=== PATIENT | female | born 1995 | race Caucasian/White ===

== ENCOUNTER 2018-09-02 21:22 | Inpatient (IN) | payer OTHER ==
[2018-09-03] MEDS ORDERED: Lidocaine 1% 50 ML MDV INJECT PRN (00:13)
[2018-09-03] MEDS ORDERED: Tranexamic Acid 1,000 MG in Sodium Chloride 0.9% 100 ML IV PRN (00:13)
[2018-09-03] MEDS ORDERED: Sodium Chloride 0.9% 10 ML Syringe FLUSH PRN (00:13)
[2018-09-03] MEDS ORDERED: Water For Irrigation,Sterile 1,000 ML Container IRR PRN (00:13)
[2018-09-03] MEDS ORDERED: Nalbuphine 10 MG/1 ML Vial IVPUSH PRN (00:13)
[2018-09-03] MEDS ORDERED: Methylergonovine 0.2 MG/1 ML Amp IM PRN (00:13)
[2018-09-03] MEDS ORDERED: Butorphanol 1 MG/ML SDV IVPUSH PRN (00:13)
[2018-09-03] MEDS ORDERED: Carboprost Tromethamine 250 MCG/1 ML Amp IM PRN (00:13)
[2018-09-03] MEDS ORDERED: Misoprostol 200 MCG Tab PO PRN (00:13)
[2018-09-03] MEDS ORDERED: Sodium Chloride 0.9% 2.5 ML Syringe FLUSH PRN (00:13)
[2018-09-03] MEDS ORDERED: Ondansetron 4 MG/2 ML SDV IV PRN (00:13)
[2018-09-03] MEDS ORDERED: Oxytocin/0.9 % Sodium Chloride 30 UNIT/500 ML BAG IV SCH ×2 (00:15→02:45)
[2018-09-03] MEDS ORDERED: fentaNYL 100 MCG/2 ML SDV ONE (01:11)
[2018-09-03] MEDS ORDERED: Lidocaine HCl/EPINEPHrine 5 ML IJ ONE (01:12)
[2018-09-03] MEDS ORDERED: Bupivacaine 0.25% 10 ML SDV ONE (01:12)
[2018-09-03] MEDS: Lactated Ringers 1,000 ML IV SCH ×4 (01:15→09:22)
[2018-09-03] MEDS ORDERED: Terbutaline 1 MG/ML SDV SUBCUT PRN (02:42)
--- NOTE | 2018-09-03 02:46 | PCM.PREANE ---
Preanesthetic Assessment - Procedure Proposed Procedure: tiffanie - Anesthesia/Transfusion/Family Hx Anesthesia History: No Prior Anesthesia Transfusion History: No Prior Transfusion(s) Type of Transfusion Reactions: Reports: Unknown - Review of Systems General: No Symptoms Pulmonary: No Symptoms Cardiovascular: No Symptoms Gastrointestinal: No Symptoms Neurological: No Symptoms Other: Reports: None - Physical Assessment NPO Status Date: 09/03/18 NPO Status Time: 01:00 Pulse: 88 O2 Sat by Pulse Oximetry: 98 Respiratory Rate: 18 Blood Pressure: 128/78 Height: 1.57 m Weight: 92.079 kg ASA Class: 2E Mental Status: Alert & Oriented x3 Dentition: Reports: Normal Dentition ROM/Head Extension: Full Lungs: Clear to Auscultation Cardiovascular: Regular Rate - Lab Values: Laboratory Last Values WBC 14.38 K/uL (4.0-11.0) H 09/02/18 23:01 RBC 4.22 M/uL (4.30-5.90) L 09/02/18 23:01 Hgb 10.3 g/dL (12.0-16.0) L 09/02/18 23:01 Hct 32.1 % (36.0-46.0) L 09/02/18 23:01 MCV 76.1 fL (80.0-98.0) L 09/02/18 23:01 MCH 24.4 pg (27.0-32.0) L 09/02/18 23:01 MCHC 32.1 g/dL (31.0-37.0) 09/02/18 23:01 RDW Std Deviation 38.6 fl (28.0-62.0) 09/02/18 23:01 RDW Coeff of Janell 14 % (11.0-15.0) 09/02/18 23:01 Plt Count 202 K/uL (150-400) 09/02/18 23:01 MPV 12.90 fL (7.40-12.00) H 09/02/18 23:01 Nucleated RBC % 0.2 /100WBC 09/02/18 23:01 Nucleated RBCs # 0 K/uL 09/02/18 23:01 Urine Color YELLOW 09/02/18 21:42 Urine Appearance CLOUDY 09/02/18 21:42 Urine pH 6.0 (5.0-8.0) 09/02/18 21:42 Ur Specific [place] 1.010 (1.001-1.035) 09/02/18 21:42 Urine Protein NEGATIVE mg/dL (NEGATIVE) 09/02/18 21:42 Urine Glucose (UA) NEGATIVE mg/dL (NEGATIVE) 09/02/18 21:42 Urine Ketones NEGATIVE mg/dL (NEGATIVE) 09/02/18 21:42 Urine Occult Blood MODERATE (NEGATIVE) H 09/02/18 21:42 Urine Nitrite NEGATIVE (NEGATIVE) 09/02/18 21:42 Urine Bilirubin NEGATIVE (NEGATIVE) 09/02/18 21:42 Urine Urobilinogen 0.2 EU/dL (<2.0) 09/02/18 21:42 Ur Leukocyte Esterase MODERATE (NEGATIVE) H 09/02/18 21:42 Blood Type O POSITIVE 09/02/18 23:01 Antibody Screen NEGATIVE 09/02/18 23:01 - Allergies Allergies/Adverse Reactions: Allergies Allergy/AdvReac Type Severity Reaction Status Date / Time cinnamon Allergy Hives Verified 09/02/18 22:11 - Acknowledgements Anesthesia Type Planned: Epidural Pt an Appropriate Candidate for the Planned Anesthesia: Yes Alternatives and Risks of Anesthesia Discussed w Pt/Guardian: Yes Pt/Guardian Understands and Agrees with Anesthesia Plan: Yes PreAnesthesia Questionnaire HEENT History: Reports: None Cardiovascular History: Reports: None Respiratory History: Reports: None Gastrointestinal History: Reports: None Genitourinary History: Reports: None 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 Musculoskeletal History: Reports: None Neurological History: Reports: None Psychiatric History: Reports: None Endocrine/Metabolic History: Reports: None Hematologic History: Reports: None Immunologic History: Reports: None Oncologic (Cancer) History: Reports: None Dermatologic History: Reports: None - Infectious Disease History Infectious Disease History: Reports: Chicken Pox - Past Surgical History Head Surgeries/Procedures: Reports: None HEENT Surgical History: Reports: Other (See Below) Other HEENT Surgeries/Procedures: [place] tooth extraction Cardiovascular Surgical History: Reports: None Respiratory Surgical History: Reports: None GI Surgical History: Reports: Bariatric Procedure Female Surgical History: Reports: None Endocrine Surgical History: Reports: None Neurological Surgical History: Reports: None Musculoskeletal Surgical History: Reports: None Oncologic Surgical History: Reports: None Dermatological Surgical History: Reports: None - SUBSTANCE USE Smoking Status *Q: Never Smoker Second Hand Smoke Exposure: No Recreational Drug Use History: No - HOME MEDS Home Medications: Home Meds PNV #116/Iron Fumarate/FA/DHA [Expecta Combo Pack] 09/02/18 [History] - CURRENT (IN HOUSE) MEDS Current Meds: Current Medications Butorphanol Tartrate (Stadol) 1 mg IVPUSH Q1H PRN PRN Reason: Pain Last Admin: 09/03/18 00:40 Dose: 1 mg Carboprost Tromethamine (Hemabate Ds) 250 mcg IM ASDIRECTED PRN PRN Reason: Post Hemorrhage Tranexamic Acid 1,000 mg/ (Sodium Chloride) 110 mls @ 660 mls/hr IV ONETIME PRN PRN Reason: Bleeding Lactated Ringer's (Ringers, Lactated) 1,000 mls @ 150 mls/hr IV ASDIRECTED JUAN Last Admin: 09/03/18 02:41 Dose: 150 mls/hr Oxytocin/Sodium Chloride (Oxytocin 30 Unit/500 Ml-Ns) 30 unit in 500 mls @ 999 mls/hr IV TITRATE [facility] Lidocaine HCl (Xylocaine 1%) 50 ml INJECT ONETIME PRN PRN Reason: Laceration repair Methylergonovine Maleate (Methergine) 0.2 mg IM ASDIRECTED PRN PRN Reason: Post Hemorrhage Misoprostol (Cytotec) 200 mcg PO ONETIME PRN PRN Reason: Post Hemorrhage Nalbuphine HCl (Nubain) 10 mg IVPUSH Q1H PRN PRN Reason: Pain (severe 7-10) Ondansetron HCl (Zofran) 4 mg IV Q6H PRN PRN Reason: Nausea/Vomiting Sodium Chloride (Saline Flush) 10 ml FLUSH ASDIRECTED PRN PRN Reason: Keep Vein Open Sodium Chloride (Saline Flush) 2.5 ml FLUSH ASDIRECTED PRN PRN Reason: Keep Vein Open Sterile Water (Sterile Water For Irrigation) 1,000 ml IRR ASDIRECTED PRN PRN Reason: delivery Discontinued Medications Bupivacaine HCl (Sensorcaine-Mpf 0.25%) Confirm Administered Dose 10 ml .ROUTE .STK-MED ONE Stop: 09/03/18 01:13 Fentanyl (Sublimaze) Confirm Administered Dose 100 mcg .ROUTE .STK-MED ONE Stop: 01/27/19 01:12 Fentanyl/Bupivacaine HCl (Dxuzgbht-Pnaoe-Gb 2 Mcg/Ml-0.125%) Confirm Administered Dose 100 mls @ as directed .ROUTE .STK-MED ONE Stop: 09/03/18 01:13 Lidocaine/Epinephrine (Lidocaine 1.5%-Epi 1:200,000) Confirm Administered Dose 5 ml IJ .STK-MED ONE Stop: 09/03/18 01:13
[2018-09-03] MEDS ORDERED: oxyCODONE 5 MG Tab PO PRN (16:26)
[2018-09-03] MEDS ORDERED: Ibuprofen 800 MG Tab PO PRN (16:26)
[2018-09-03] MEDS ORDERED: Bisacodyl 10 MG Supp RECTAL PRN (16:26)
[2018-09-03] MEDS ORDERED: Benzocaine/Menthol 20%-0.5% Spray 78 GM Cannister TOP PRN (16:26)
[2018-09-03] MEDS ORDERED: Lanolin 100% Cream 7 GM Tube TOP PRN (16:26)
[2018-09-03] MEDS ORDERED: Witch Hazel Medicated Pads 40/Jar TOP PRN (16:26)
[2018-09-03] MEDS ORDERED: Ibuprofen 400 MG Tab PO PRN (16:26)
[2018-09-03] MEDS ORDERED: Docusate Sodium 100 MG Cap PO PRN (16:26)
[2018-09-03] MEDS ORDERED: Acetaminophen 500 MG Tab PO PRN ×2 (16:26)
--- NOTE | 2018-09-03 16:30 | PCM.DEL ---
L & D Note - General Info Date of Service: 09/03/18 Mother's Due Date: 08/28/18 - Delivery Note Labor: Augmented by ARM, Augmented by Oxytocin Delivery Outcome: Livebirth Presentation: Right Occiput Anterior (DAMIAN) Nuchal Cord: None Anesthesia Type: Epidural Amniotic Fluid Description: Clear Laceration: 1st Degree Suture type: Other (Monocryl) Suture size: 2-0 Placenta: Intact Cord: 3 Vessels Estimated Blood Loss: 300 Resuscitation Needed: No Score 1 min: 8 Score 5 min: 9 Second Stage Interventions: Reports: Pushing, McRobert's Position Delivery Comments (Free Text/Narrative):: Live male delivered at 1544 , weight 3670g , 8/9 , 3VC - General Info Date of Service: 09/03/18 - Patient Data Vitals - Most Recent: Last Vital Signs Temp Pulse 88 09/03/18 02:46 Resp 18 09/03/18 02:46 BP 128/78 09/03/18 02:46 Pulse Ox 98 09/03/18 02:46 Weight - Most Recent: 92.079 kg Lab Results Last 24 Hours: Laboratory Results - last 24 hr 09/02/18 09/02/18 09/02/18 Range/Units 21:42 23:01 23:01 WBC 14.38 H (4.0-11.0) K/uL RBC 4.22 L (4.30-5.90) M/uL Hgb 10.3 L (12.0-16.0) g/dL Hct 32.1 L (36.0-46.0) % MCV 76.1 L (80.0-98.0) fL MCH 24.4 L (27.0-32.0) pg MCHC 32.1 (31.0-37.0) g/dL RDW Std Deviation 38.6 (28.0-62.0) fl RDW Coeff of Janell 14 (11.0-15.0) % Plt Count 202 (150-400) K/uL MPV 12.90 H (7.40-12.00) fL Nucleated RBC % 0.2 /100WBC Nucleated RBCs # 0 K/uL Urine Color YELLOW Urine Appearance CLOUDY Urine pH 6.0 (5.0-8.0) Ur Specific [place] 1.010 (1.001-1.035) Urine Protein NEGATIVE (NEGATIVE) mg/dL Urine Glucose (UA) NEGATIVE (NEGATIVE) mg/dL Urine Ketones NEGATIVE (NEGATIVE) mg/dL Urine Occult Blood MODERATE H (NEGATIVE) Urine Nitrite NEGATIVE (NEGATIVE) Urine Bilirubin NEGATIVE (NEGATIVE) Urine Urobilinogen 0.2 (<2.0) EU/dL Ur Leukocyte Esterase MODERATE H (NEGATIVE) Blood Type O POSITIVE Antibody Screen NEGATIVE Med Orders - Current: Current Medications Carboprost Tromethamine (Hemabate Ds) 250 mcg IM ASDIRECTED PRN PRN Reason: Post Hemorrhage Tranexamic Acid 1,000 mg/ (Sodium Chloride) 110 mls @ 660 mls/hr IV ONETIME PRN PRN Reason: Bleeding Lactated Ringer's (Ringers, Lactated) 1,000 mls @ 150 mls/hr IV ASDIRECTED JUAN Last Admin: 09/03/18 09:22 Dose: 150 mls/hr Oxytocin/Sodium Chloride (Oxytocin 30 Unit/500 Ml-Ns) 30 unit in 500 mls @ 999 mls/hr IV TITRATE JUAN Oxytocin/Sodium Chloride (Oxytocin 30 Unit/500 Ml-Ns) 30 unit in 500 mls @ 2 mls/hr IV TITRATE JUAN; Protocol Last Titration: 09/03/18 15:36 Dose: 12 munits/min, 12 mls/hr Lidocaine HCl (Xylocaine 1%) 50 ml INJECT ONETIME PRN PRN Reason: Laceration repair Methylergonovine Maleate (Methergine) 0.2 mg IM ASDIRECTED PRN PRN Reason: Post Hemorrhage Last Admin: 09/03/18 16:01 Dose: 0.2 mg Misoprostol (Cytotec) 200 mcg PO ONETIME PRN PRN Reason: Post Hemorrhage Ondansetron HCl (Zofran) 4 mg IV Q6H PRN PRN Reason: Nausea/Vomiting Sodium Chloride (Saline Flush) 10 ml FLUSH ASDIRECTED PRN PRN Reason: Keep Vein Open Sodium Chloride (Saline Flush) 2.5 ml FLUSH ASDIRECTED PRN PRN Reason: Keep Vein Open Sterile Water (Sterile Water For Irrigation) 1,000 ml IRR ASDIRECTED PRN PRN Reason: delivery Discontinued Medications Bupivacaine HCl (Sensorcaine-Mpf 0.25%) Confirm Administered Dose 10 ml .ROUTE .STK-MED ONE Stop: 09/03/18 01:13 Butorphanol Tartrate (Stadol) 1 mg IVPUSH Q1H PRN PRN Reason: Pain Last Admin: 09/03/18 00:40 Dose: 1 mg Fentanyl (Sublimaze) Confirm Administered Dose 100 mcg .ROUTE .STK-MED ONE Stop: 09/03/18 01:12 Fentanyl/Bupivacaine HCl (Ucoakzfv-Bmuac-Us 2 Mcg/Ml-0.125%) Confirm Administered Dose 100 mls @ as directed .ROUTE .STK-MED ONE Stop: 09/03/18 01:13 Fentanyl/Bupivacaine HCl (Eryedgye-Hxfuv-Va 2 Mcg/Ml-0.125%) Confirm Administered Dose 100 mls @ as directed .ROUTE .STK-MED ONE Stop: 09/03/18 09:01 Fentanyl/Bupivacaine HCl (Rahckohf-Ynqys-Qb 2 Mcg/Ml-0.125%) Confirm Administered Dose 100 mls @ as directed .ROUTE .[employer]-MED ONE Stop: 09/03/18 15:30 Lidocaine/Epinephrine (Lidocaine 1.5%-Epi 1:200,000) Confirm Administered Dose 5 ml IJ .STK-MED ONE Stop: 09/03/18 01:13 Nalbuphine HCl (Nubain) 10 mg IVPUSH Q1H PRN PRN Reason: Pain (severe 7-10) Terbutaline Sulfate (Brethine) 0.25 mg SUBCUT ASDIRECTED PRN PRN Reason: Tacysystole - Problem List & Annotations (1) Vaginal delivery SNOMED Code(s): 619058233 Code(s): O80 - ENCOUNTER FOR FULL-TERM UNCOMPLICATED DELIVERY Status: Acute Current Visit: Yes - Problem List Review Problem List Initiated/Reviewed/Updated: Yes - My Orders Last 24 Hours: My Active Orders 09/02/18 22:13 Patient Status [ADT] Routine 09/02/18 22:30 Patient Status [ADT] Routine 09/03/18 00:13 Carboprost Tromethamine [Hemabate DS] 250 mcg IM ASDIRECTED PRN Lidocaine 1% [Xylocaine 1%] 50 ml INJECT ONETIME PRN Methylergonovine [Methergine] 0.2 mg IM ASDIRECTED PRN Ondansetron [Zofran] 4 mg IV Q6H PRN Sodium Chloride 0.9% [Saline Flush] 10 ml FLUSH ASDIRECTED PRN Sodium Chloride 0.9% [Saline Flush] 2.5 ml FLUSH ASDIRECTED PRN Tranexamic Acid [Cyklokapron] 1,000 mg Sodium Chloride 0.9% [Normal Saline] 100 ml IV ONETIME Water For Irrigation,Sterile [Sterile Water for Irrigation] 1,000 ml IRR ASDIRECTED PRN miSOPROStol [Cytotec] 200 mcg PO ONETIME PRN 09/03/18 00:14 May Shower [RC] ASDIRECTED Notify Provider [RC] PRN Up ad Jessy [RC] ASDIRECTED Vital Signs [RC] PER UNIT ROUTINE Peripheral IV Insertion Adult [OM.PC] Routine 09/03/18 00:15 Lactated Ringers [Ringers, Lactated] 1,000 ml IV ASDIRECTED Oxytocin/0.9 % Sodium Chloride [Oxytocin 30 Unit/500 ML-NS] 30 unit in 500 ml IV TITRATE 09/03/18 02:43 Bedrest Bathroom Privileges [RC] ASDIRECTED Communication Order [RC] ASDIRECTED Communication Order [RC] ASDIRECTED Notify Provider [RC] PRN Notify Provider [RC] STAT Oxygen Therapy [RC] ASDIRECTED 09/03/18 02:45 Oxytocin/0.9 % Sodium Chloride [Oxytocin 30 Unit/500 ML-NS] 30 unit in 500 ml IV TITRATE Medication Administration Instruction [OM.PC] Q3H 09/03/18 16:26 Patient Status [ADT] Routine December Shower [RC] ASDIRECTED Up ad Jessy [RC] ASDIRECTED Vital Signs [RC] PER UNIT ROUTINE Acetaminophen [Tylenol Extra Strength] 1,000 mg PO Q4H PRN Acetaminophen [Tylenol Extra Strength] 500 mg PO Q4H PRN Benzocaine/Menthol [Dermoplast Pain Relief 20%-0.5% [place]] 78 gm TOP ASDIRECTED PRN Bisacodyl [Dulcolax] 10 mg RECTAL ONETIME PRN Docusate Sodium [Colace] 100 mg PO BID PRN Ibuprofen [Motrin] 400 mg PO Q4H PRN Ibuprofen [Motrin] 800 mg PO Q6H PRN Lanolin [Lansinoh HPA] See Dose Instructions TOP ASDIRECTED PRN Witch Mayra [Tucks] 1 pad TOP ASDIRECTED PRN oxyCODONE 5 mg PO Q2H PRN Assess Lochia [WOMSER] Per Unit Routine Assess Uterine Involution [WOMSER] Per Unit Routine Peripheral IV Discontinue [OM.PC] Routine Resuscitation Status Routine 09/04/18 05:11 HEMOGLOBIN/HEMATOCRIT,HH [HEME] Timed
--- NOTE | 2018-09-03 23:52 | PCM48HPAN ---
Post Anesthesia Note - EVALUATION WITHIN 48HRS OF ANESTHETIC Vital Signs in Normal Range: Yes Patient Participated in Evaluation: Yes Respiratory Function Stable: Yes Airway Patent: Yes Cardiovascular Function Stable: Yes Hydration Status Stable: Yes Pain Control Satisfactory: Yes Nausea and Vomiting Control Satisfactory: Yes Mental Status Recovered: Yes Pulse Rate: 88 Resp Rate: 16 Blood Pressure: 128/78 - COMMENTS/OBSERVATIONS Free Text/Narrative:: patient comfortable at this time, no signs or symptoms of anesthesia related problems
--- NOTE | 2018-09-04 00:42 | OR ---
SURGEON: HALEIGH PATHAK PREOPERATIVE DIAGNOSIS: A 23-year-old, G1, P0 at 40 weeks 5 days, admitted in early labor. POSTOPERATIVE DIAGNOSIS: A 23-year-old, G1, P0 at 40 weeks 5 days, admitted in early labor. PROCEDURE PERFORMED: Normal spontaneous vaginal delivery and repair of first-degree bilateral vaginal laceration. ESTIMATED BLOOD LOSS: 300. ANESTHESIA: Epidural. NOTABLE FINDING: A live male delivered at 1544 hours, scores 8 and 9, weight is 3670 g. BRIEF HISTORY ABOUT THE PATIENT: She is a 23-year-old, G1, P0, 40 weeks 5 days, came in complaining of contractions. As a result, she was 3 cm dilated. The patient remained unchanged, so she was started on Pitocin. With Pitocin, the patient was examined. She was 6 cm dilated. She was ruptured and IUPC was placed. She intermittently had a category II tracing with late deceleration which improved. She had the normal labor course and became fully dilated. The patient pushed for one and a half hours when she was fully dilated. DESCRIPTION OF PROCEDURE: The patient being fully dilated, she was encouraged to push. With good patient effort, she delivered the head, subsequently by the anterior and posterior shoulder. The of the baby was delivered. She was placed on the maternal abdomen. Delayed cord clamping was observed. The cord was clamped and cut. Blood gases were obtained. The placenta was delivered via controlled cord traction. The perineum was inspected. Bilateral labial laceration was noted and was repaired in layers with a 2-0 Monocryl. The perineum was re-inspected again and was noted to be hemostatic. Because of the slightly increased amount of vaginal bleeding, she was given Methergine x1 dose. Bleeding was now controlled. The patient left the Labor and Delivery room in stable condition. TAWANNA TALAMANTES /[id number] JOHN
--- NOTE | 2018-09-04 08:13 | PCM.PNPP ---
<Herlinda Roach - Last Filed: 09/04/18 08:07> - General Info Date of Service: 09/04/18 Functional Status: Reports: Pain Controlled, Tolerating Diet, Ambulating, Urinating - Review of Systems General: Denies: Fever, Weakness, Fatigue Pulmonary: Denies: Shortness of Breath, Pleuritic Chest Pain, Cough Cardiovascular: Denies: Chest Pain, Palpitations, Dyspnea on Exertion Gastrointestinal: Denies: Abdominal Pain Genitourinary: Denies: Dysuria - General Info Date of Service: 09/04/18 - Patient Data Vital Signs - Most Recent: Last Vital Signs Temp 36.5 C 09/04/18 04:05 Pulse 97 09/04/18 04:05 Resp 16 09/04/18 04:05 BP 111/69 09/04/18 04:05 Pulse Ox 96 09/04/18 04:05 Weight - Most Recent: 92.079 kg Lab Results - Last 24 Hours: Laboratory Results - last 24 hr 09/04/18 Range/Units 05:32 Hgb 9.3 L (12.0-16.0) g/dL Hct 29.2 L (36.0-46.0) % Med Orders - Current: Current Medications Acetaminophen (Tylenol Extra Strength) 500 mg PO Q4H PRN PRN Reason: Pain Acetaminophen (Tylenol Extra Strength) 1,000 mg PO Q4H PRN PRN Reason: Pain Last Admin: 09/04/18 01:07 Dose: 1,000 mg Benzocaine/Menthol (Dermoplast Pain Relief 20%-0.5% [place]) 78 gm TOP ASDIRECTED PRN PRN Reason: Perineal Comfort Measure Last Admin: 09/03/18 18:35 Dose: 1 canister Bisacodyl (Dulcolax) 10 mg RECTAL ONETIME PRN PRN Reason: Constipation Carboprost Tromethamine (Hemabate Ds) 250 mcg IM ASDIRECTED PRN PRN Reason: Post Hemorrhage Docusate Sodium (Colace) 100 mg PO BID PRN PRN Reason: Constipation Emollient Ointment (Lansinoh Hpa) 0 gm TOP ASDIRECTED PRN PRN Reason: Sore Nipples Tranexamic Acid 1,000 mg/ (Sodium Chloride) 110 mls @ 660 mls/hr IV ONETIME PRN PRN Reason: Bleeding Lactated Ringer's (Ringers, Lactated) 1,000 mls @ 150 mls/hr IV ASDIRECTED JUAN Last Admin: 09/03/18 09:22 Dose: 150 mls/hr Oxytocin/Sodium Chloride (Oxytocin 30 Unit/500 Ml-Ns) 30 unit in 500 mls @ 999 mls/hr IV TITRATE JUAN Oxytocin/Sodium Chloride (Oxytocin 30 Unit/500 Ml-Ns) 30 unit in 500 mls @ 2 mls/hr IV TITRATE JUAN; Protocol Last Titration: 09/03/18 15:59 Dose: 999 munits/min, 999 mls/hr Ibuprofen (Motrin) 400 mg PO Q4H PRN PRN Reason: Pain Ibuprofen (Motrin) 800 mg PO Q6H PRN PRN Reason: Pain Last Admin: 09/03/18 18:32 Dose: 800 mg Lidocaine HCl (Xylocaine 1%) 50 ml INJECT ONETIME PRN PRN Reason: Laceration repair Methylergonovine Maleate (Methergine) 0.2 mg IM ASDIRECTED PRN PRN Reason: Post Hemorrhage Last Admin: 09/03/18 16:01 Dose: 0.2 mg Misoprostol (Cytotec) 200 mcg PO ONETIME PRN PRN Reason: Post Hemorrhage Ondansetron HCl (Zofran) 4 mg IV Q6H PRN PRN Reason: Nausea/Vomiting Oxycodone HCl (Oxycodone) 5 mg PO Q2H PRN PRN Reason: Pain Sodium Chloride (Saline Flush) 10 ml FLUSH ASDIRECTED PRN PRN Reason: Keep Vein Open Sodium Chloride (Saline Flush) 2.5 ml FLUSH ASDIRECTED PRN PRN Reason: Keep Vein Open Sterile Water (Sterile Water For Irrigation) 1,000 ml IRR ASDIRECTED PRN PRN Reason: delivery Witch Mayra (Tucks) 1 pad TOP ASDIRECTED PRN PRN Reason: comfort care Last Admin: 09/03/18 18:33 Dose: 1 container Discontinued Medications Bupivacaine HCl (Sensorcaine-Mpf 0.25%) Confirm Administered Dose 10 ml .ROUTE .STK-MED ONE Stop: 09/03/18 01:13 Butorphanol Tartrate (Stadol) 1 mg IVPUSH Q1H PRN PRN Reason: Pain Last Admin: 09/03/18 00:40 Dose: 1 mg Fentanyl (Sublimaze) Confirm Administered Dose 100 mcg .ROUTE .STK-MED ONE Stop: 09/03/18 01:12 Fentanyl/Bupivacaine HCl (Rxopvria-Bedjp-Dz 2 Mcg/Ml-0.125%) Confirm Administered Dose 100 mls @ as directed .ROUTE .STK-MED ONE Stop: 09/03/18 01:13 Fentanyl/Bupivacaine HCl (Rfyjvroi-Htbkv-Dv 2 Mcg/Ml-0.125%) Confirm Administered Dose 100 mls @ as directed .ROUTE .STK-MED ONE Stop: 09/03/18 09:01 Fentanyl/Bupivacaine HCl (Pyditfou-Zjwzo-Lr 2 Mcg/Ml-0.125%) Confirm Administered Dose 100 mls @ as directed .ROUTE .STK-MED ONE Stop: 09/03/18 15:30 Lidocaine/Epinephrine (Lidocaine 1.5%-Epi 1:200,000) Confirm Administered Dose 5 ml IJ .STK-MED ONE Stop: 09/03/18 01:13 Nalbuphine HCl (Nubain) 10 mg IVPUSH Q1H PRN PRN Reason: Pain (severe 7-10) Terbutaline Sulfate (Brethine) 0.25 mg SUBCUT ASDIRECTED PRN PRN Reason: Tacysystole - Infant Interaction Disposition, : [place] in Room with Family Infant Interaction: Holding Feeding: Breastfed ; Nursed Well Support Person: Significant Other - Recovery Exam Fundal Tone: Firm Fundal Level: At Umbilicus Fundal Placement: Midline Lochia Amount: Small Lochia Color: Rubra/Red Episiotomy/Laceration: Approximated Bladder Status: Voiding - Exam General: Alert, Oriented Neck: Supple Lungs: Clear to Auscultation, Normal Respiratory Effort Cardiovascular: Regular Rate, Regular Rhythm GI/Abdominal Exam: Normal Bowel Sounds, Soft, Non-Tender, No Distention, No Mass Extremities: Normal Inspection, Normal Range of Motion, Non-Tender, Normal Capillary Refill, Pedal Edema Skin: Warm, Dry, Intact - Problem List & Annotations (1) Vaginal delivery SNOMED Code(s): 121113033 Code(s): O80 - ENCOUNTER FOR FULL-TERM UNCOMPLICATED DELIVERY Status: Acute Current Visit: Yes - Problem List Review Problem List Initiated/Reviewed/Updated: Yes - Assessment Assessment:: PPD #1 s/p . Minimal and lochia. Breast feeding well. Discharge home today. - Plan Plan:: Discharge home today. Pelvic rest for 6 weeks. Continue PNV while breast feeding. Can use OTC ibuprofen/tylenol as needed for pain. Instructed patient to call if she develops fever greater than 101 or bleeding through a large pad an hour. F/U with [facility] in 6 weeks <Cathie Naidu - Last Filed: 09/04/18 08:52> - Patient Data Vital Signs - Most Recent: Last Vital Signs Temp 36.5 C 09/04/18 04:05 Pulse 97 09/04/18 04:05 Resp 16 09/04/18 04:05 BP 111/69 09/04/18 04:05 Pulse Ox 96 09/04/18 04:05 Lab Results - Last 24 Hours: Laboratory Results - last 24 hr 09/04/18 Range/Units 05:32 Hgb 9.3 L (12.0-16.0) g/dL Hct 29.2 L (36.0-46.0) % Med Orders - Current: Current Medications Acetaminophen (Tylenol Extra Strength) 500 mg PO Q4H PRN PRN Reason: Pain Acetaminophen (Tylenol Extra Strength) 1,000 mg PO Q4H PRN PRN Reason: Pain Last Admin: 09/04/18 01:07 Dose: 1,000 mg Benzocaine/Menthol (Dermoplast Pain Relief 20%-0.5% [place]) 78 gm TOP ASDIRECTED PRN PRN Reason: Perineal Comfort Measure Last Admin: 09/03/18 18:35 Dose: 1 canister Bisacodyl (Dulcolax) 10 mg RECTAL ONETIME PRN PRN Reason: Constipation Carboprost Tromethamine (Hemabate Ds) 250 mcg IM ASDIRECTED PRN PRN Reason: Post Hemorrhage Docusate Sodium (Colace) 100 mg PO BID PRN PRN Reason: Constipation Emollient Ointment (Lansinoh Hpa) 0 gm TOP ASDIRECTED PRN PRN Reason: Sore Nipples Tranexamic Acid 1,000 mg/ (Sodium Chloride) 110 mls @ 660 mls/hr IV ONETIME PRN PRN Reason: Bleeding Lactated Ringer's (Ringers, Lactated) 1,000 mls @ 150 mls/hr IV ASDIRECTED JUAN Last Admin: 09/03/18 09:22 Dose: 150 mls/hr Oxytocin/Sodium Chloride (Oxytocin 30 Unit/500 Ml-Ns) 30 unit in 500 mls @ 999 mls/hr IV TITRATE JUAN Oxytocin/Sodium Chloride (Oxytocin 30 Unit/500 Ml-Ns) 30 unit in 500 mls @ 2 mls/hr IV TITRATE JUAN; Protocol Last Titration: 09/03/18 15:59 Dose: 999 munits/min, 999 mls/hr Ibuprofen (Motrin) 400 mg PO Q4H PRN PRN Reason: Pain Ibuprofen (Motrin) 800 mg PO Q6H PRN PRN Reason: Pain Last Admin: 09/03/18 18:32 Dose: 800 mg Lidocaine HCl (Xylocaine 1%) 50 ml INJECT ONETIME PRN PRN Reason: Laceration repair Methylergonovine Maleate (Methergine) 0.2 mg IM ASDIRECTED PRN PRN Reason: Post Hemorrhage Last Admin: 09/03/18 16:01 Dose: 0.2 mg Misoprostol (Cytotec) 200 mcg PO ONETIME PRN PRN Reason: Post Hemorrhage Ondansetron HCl (Zofran) 4 mg IV Q6H PRN PRN Reason: Nausea/Vomiting Oxycodone HCl (Oxycodone) 5 mg PO Q2H PRN PRN Reason: Pain Sodium Chloride (Saline Flush) 10 ml FLUSH ASDIRECTED PRN PRN Reason: Keep Vein Open Sodium Chloride (Saline Flush) 2.5 ml FLUSH ASDIRECTED PRN PRN Reason: Keep Vein Open Sterile Water (Sterile Water For Irrigation) 1,000 ml IRR ASDIRECTED PRN PRN Reason: delivery Pramod Nunez (Tucks) 1 pad TOP ASDIRECTED PRN PRN Reason: comfort care Last Admin: 09/03/18 18:33 Dose: 1 container Discontinued Medications Bupivacaine HCl (Sensorcaine-Mpf 0.25%) Confirm Administered Dose 10 ml .ROUTE .STK-MED ONE Stop: 09/03/18 01:13 Butorphanol Tartrate (Stadol) 1 mg IVPUSH Q1H PRN PRN Reason: Pain Last Admin: 09/03/18 00:40 Dose: 1 mg Fentanyl (Sublimaze) Confirm Administered Dose 100 mcg .ROUTE .STK-MED ONE Stop: 09/03/18 01:12 Fentanyl/Bupivacaine HCl (Lahiudae-Jeten-Op 2 Mcg/Ml-0.125%) Confirm Administered Dose 100 mls @ as directed .ROUTE .STK-MED ONE Stop: 09/03/18 01:13 Fentanyl/Bupivacaine HCl (Wcpcuxnu-Pexmu-Ay 2 Mcg/Ml-0.125%) Confirm Administered Dose 100 mls @ as directed .ROUTE .STK-MED ONE Stop: 09/03/18 09:01 Fentanyl/Bupivacaine HCl (Lspjlkki-Cjeni-Xo 2 Mcg/Ml-0.125%) Confirm Administered Dose 100 mls @ as directed .ROUTE .STK-MED ONE Stop: 09/03/18 15:30 Lidocaine/Epinephrine (Lidocaine 1.5%-Epi 1:200,000) Confirm Administered Dose 5 ml IJ .STK-MED ONE Stop: 09/03/18 01:13 Nalbuphine HCl (Nubain) 10 mg IVPUSH Q1H PRN PRN Reason: Pain (severe 7-10) Terbutaline Sulfate (Brethine) 0.25 mg SUBCUT ASDIRECTED PRN PRN Reason: Tacysystole - My Orders Last 24 Hours: My Active Orders 09/04/18 Breakfast Regular Diet [DIET] - Plan Plan:: Patient seen and examined--agree with above.
--- NOTE | 2018-09-05 08:46 | PCM.PNPP ---
- General Info Date of Service: 09/05/18 Functional Status: Reports: Pain Controlled, Tolerating Diet, Ambulating, Urinating - Review of Systems General: Denies: Fever, Weakness Pulmonary: Denies: Shortness of Breath Cardiovascular: Denies: Chest Pain, Palpitations, Lightheadedness Gastrointestinal: Denies: Nausea, Vomiting Genitourinary: Denies: Flank Pain Musculoskeletal: Reports: No Symptoms Skin: Reports: No Symptoms Neurological: Reports: No Symptoms Psychiatric: Reports: No Symptoms - General Info Date of Service: 09/05/18 - Patient Data Vital Signs - Most Recent: Last Vital Signs Temp 37.2 C 09/05/18 04:55 Pulse 86 09/05/18 04:55 Resp 16 09/05/18 04:55 BP 109/68 09/05/18 04:55 Pulse Ox 98 09/05/18 04:55 Weight - Most Recent: 92.079 kg Med Orders - Current: Current Medications Acetaminophen (Tylenol Extra Strength) 500 mg PO Q4H PRN PRN Reason: Pain Acetaminophen (Tylenol Extra Strength) 1,000 mg PO Q4H PRN PRN Reason: Pain Last Admin: 09/04/18 01:07 Dose: 1,000 mg Benzocaine/Menthol (Dermoplast Pain Relief 20%-0.5% [place]) 78 gm TOP ASDIRECTED PRN PRN Reason: Perineal Comfort Measure Last Admin: 09/03/18 18:35 Dose: 1 canister Bisacodyl (Dulcolax) 10 mg RECTAL ONETIME PRN PRN Reason: Constipation Carboprost Tromethamine (Hemabate Ds) 250 mcg IM ASDIRECTED PRN PRN Reason: Post Hemorrhage Docusate Sodium (Colace) 100 mg PO BID PRN PRN Reason: Constipation Last Admin: 09/05/18 07:27 Dose: 100 mg Emollient Ointment (Lansinoh Hpa) 0 gm TOP ASDIRECTED PRN PRN Reason: Sore Nipples Tranexamic Acid 1,000 mg/ (Sodium Chloride) 110 mls @ 660 mls/hr IV ONETIME PRN PRN Reason: Bleeding Lactated Ringer's (Ringers, Lactated) 1,000 mls @ 150 mls/hr IV ASDIRECTED JUAN Last Admin: 09/03/18 09:22 Dose: 150 mls/hr Oxytocin/Sodium Chloride (Oxytocin 30 Unit/500 Ml-Ns) 30 unit in 500 mls @ 999 mls/hr IV TITRATE JUAN Oxytocin/Sodium Chloride (Oxytocin 30 Unit/500 Ml-Ns) 30 unit in 500 mls @ 2 mls/hr IV TITRATE JUAN; Protocol Last Titration: 09/03/18 15:59 Dose: 999 munits/min, 999 mls/hr Ibuprofen (Motrin) 400 mg PO Q4H PRN PRN Reason: Pain Ibuprofen (Motrin) 800 mg PO Q6H PRN PRN Reason: Pain Last Admin: 09/03/18 18:32 Dose: 800 mg Lidocaine HCl (Xylocaine 1%) 50 ml INJECT ONETIME PRN PRN Reason: Laceration repair Methylergonovine Maleate (Methergine) 0.2 mg IM ASDIRECTED PRN PRN Reason: Post Hemorrhage Last Admin: 09/03/18 16:01 Dose: 0.2 mg Misoprostol (Cytotec) 200 mcg PO ONETIME PRN PRN Reason: Post Hemorrhage Ondansetron HCl (Zofran) 4 mg IV Q6H PRN PRN Reason: Nausea/Vomiting Oxycodone HCl (Oxycodone) 5 mg PO Q2H PRN PRN Reason: Pain Sodium Chloride (Saline Flush) 10 ml FLUSH ASDIRECTED PRN PRN Reason: Keep Vein Open Sodium Chloride (Saline Flush) 2.5 ml FLUSH ASDIRECTED PRN PRN Reason: Keep Vein Open Sterile Water (Sterile Water For Irrigation) 1,000 ml IRR ASDIRECTED PRN PRN Reason: delivery Witch Mayra (Tuck) 1 pad TOP ASDIRECTED PRN PRN Reason: comfort care Last Admin: 09/03/18 18:33 Dose: 1 container Discontinued Medications Bupivacaine HCl (Sensorcaine-Mpf 0.25%) Confirm Administered Dose 10 ml .ROUTE .[employer]-MED ONE Stop: 09/03/18 01:13 Butorphanol Tartrate (Stadol) 1 mg IVPUSH Q1H PRN PRN Reason: Pain Last Admin: 09/03/18 00:40 Dose: 1 mg Fentanyl (Sublimaze) Confirm Administered Dose 100 mcg .ROUTE .[employer]etsly-MED ONE Stop: 09/03/18 01:12 Fentanyl/Bupivacaine HCl (Uqnqhcdp-Jlkpw-Xo 2 Mcg/Ml-0.125%) Confirm Administered Dose 100 mls @ as directed .ROUTE .STK-MED ONE Stop: 09/03/18 01:13 Fentanyl/Bupivacaine HCl (Jdjzmrzh-Itumq-Dd 2 Mcg/Ml-0.125%) Confirm Administered Dose 100 mls @ as directed .ROUTE .STK-MED ONE Stop: 09/03/18 09:01 Fentanyl/Bupivacaine HCl (Rodbhrus-Nzyqq-Bx 2 Mcg/Ml-0.125%) Confirm Administered Dose 100 mls @ as directed .ROUTE .STK-MED ONE Stop: 09/03/18 15:30 Lidocaine/Epinephrine (Lidocaine 1.5%-Epi 1:200,000) Confirm Administered Dose 5 ml IJ .STK-MED ONE Stop: 09/03/18 01:13 Nalbuphine HCl (Nubain) 10 mg IVPUSH Q1H PRN PRN Reason: Pain (severe 7-10) Terbutaline Sulfate (Brethine) 0.25 mg SUBCUT ASDIRECTED PRN PRN Reason: Tacysystole - Infant Interaction Infant Disposition, : [place] in Room with Family Interaction: Holding Infant Feeding: Breastfed ; Nursed Well Support Person: Significant Other - Recovery Exam Fundal Tone: Firm Fundal Level: 1 Fingerbreadths Below Umbilicus Fundal Placement: Midline Lochia Amount: Small Lochia Color: Rubra/Red Episiotomy/Laceration: Approximated Bladder Status: Voiding - Exam General: Alert, Oriented Neck: Supple Lungs: Normal Respiratory Effort Cardiovascular: Regular Rate, Regular Rhythm GI/Abdominal Exam: Normal Bowel Sounds, Soft, Non-Tender Extremities: Pedal Edema (trace). No: Abdoul's Sign Skin: Warm, Dry, Intact Neurological: No New Focal Deficit Psy/Mental Status: Alert, Normal Affect, Normal Mood - Problem List & Annotations (1) Vaginal delivery SNOMED Code(s): 820904040 Code(s): O80 - ENCOUNTER FOR FULL-TERM UNCOMPLICATED DELIVERY Status: Acute Current Visit: Yes - Problem List Review Problem List Initiated/Reviewed/Updated: Yes - Assessment Assessment:: PPD #2 s/p . Minimal and lochia. Breast feeding well. Discharge home today. - Plan Plan:: Resume discharge orders, baby not able to void yesterday--so observed overnight. Baby has voided. Patient doing well. Resume discharge orders.
== END 2018-09-05 11:58 | disposition home or self-care (01) | DRG 807 ==
LOC: MW.OBCHECK 21:22 → MW.OB 21:27 → MW.OBCHECK 22:30 → OBSVTOIN 09-03 15:44 → MW.OB 09-03 21:16
PROVIDERS: ADMIT Obstetrics & Gynecology; ATTEND Obstetrics & Gynecology
PROC: 10H07YZ Insertion of Other Device into Products of Conception, Via Natural or Artificial Opening (ICD-10-PCS; principal; 2018-09-03)
PROC: 10907ZC Drainage of Amniotic Fluid, Therapeutic from Products of Conception, Via Natural or Artificial Opening (ICD-10-PCS; principal; 2018-09-03)
PROC: 0UQMXZZ Repair Vulva, External Approach (ICD-10-PCS; principal; 2018-09-03)
PROC: 10E0XZZ Delivery of Products of Conception, External Approach (ICD-10-PCS; principal; 2018-09-03)
PROC: 00HU33Z Insertion of Infusion Device into Spinal Canal, Percutaneous Approach (ICD-10-PCS; 2018-09-03)
PROC: 3E0R3BZ Introduction of Anesthetic Agent into Spinal Canal, Percutaneous Approach (ICD-10-PCS; 2018-09-03)
DX: O48.0 Post-term pregnancy (principal); Z37.0 Single live birth; Z3A.40 40 weeks gestation of pregnancy; O70.0 First degree perineal laceration during delivery; Z98.84 Bariatric surgery status; Z91.018 Allergy to other foods
CPT/HCPCS: 01967; 36415; 51702; 59025; 59409; 81003; 85014; 85018; 85027; 86850; 86900; 86901; A9270-GY; J0595; J2210; J2590; J7120